=== PATIENT | female | born 1990 | race Caucasian/White ===

== ENCOUNTER 2019-07-28 17:58 | Emergency (ER) | payer OTHER ==
[~2019-07-28] VITALS: Ht 177.8 cm; Wt 79.4 kg
[2019-07-28 18:19] VITALS: BP 130/83
[2019-07-28] MEDS ORDERED: birth control pill ORAL (18:20)
--- NOTE | 2019-07-28 18:20 | NUR ---
ED Nurse Note: Patient ambulated into ER with a c/o back pain x today. Patient Addendum: 07/28/19 at 1908 by [facility] ED Nurse Note: Patient came from work and think she pulled a muscle moving boxes. Patient c/o pain score of 7/10. Patient aaox4, on room air.
--- NOTE | 2019-07-28 18:41 | NUR ---
ED Nurse Note: Urine sent down to the lab.
--- NOTE | 2019-07-28 18:50 | NUR ---
ED Nurse Note: ERMD is bedside.
[2019-07-28] MEDS ORDERED: CYCLOBENZAPRINE10 MG ORAL (18:59)
[2019-07-28] MEDS ORDERED: IBUPROFEN600 MG ORAL (18:59)
--- NOTE | 2019-07-28 19:06 | Emergency Room Report ---
History of Present Illness General Chief Complaint: Back Injury Source: Patient Present Illness HPI Patient is a 29-year-old female presents after increased neck and low back pain. She reports having injury while twisting at work. She denies any fever. She reports having pain to the left side of her neck as well as to the lumbar area. She denies prior back pain. She denies being . She takes ibuprofen without any improvement. She had prior pain to her neck but denies any sharp pain with sudden onset. Denies any dizziness or lightheadedness. Had not been vomiting or having diarrhea. Allergies: Coded Allergies: No Known Allergies (Unverified , 07/28/19) Patient History Past Medical History: see triage record Last Menstrual Period: 07/14/2019 Reviewed Nursing Documentation: PMH: Agreed; PSxH: Agreed Nursing Documentation-PMH Past Medical History: No History, Except For Review of Systems All Other Systems: negative except mentioned in HPI Physical Exam Vital Signs Date Time Temp Pulse Resp B/P (MAP) Pulse Ox O2 Delivery O2 Flow Rate FiO2 07/28/19 18:11 98.2 94 18 130/83 (99) 97 Room Air General Appearance: well appearing, no apparent distress, alert, GCS 15 Head: normocephalic, atraumatic ENT: hearing grossly normal, normal voice Neck: supple, limited range of motion - Decreased range of motion with right lateral rotation normal extension normal flexion Respiratory: lungs clear, no respiratory distress, speaking full sentences Cardiovascular #1: normal inspection, normal peripheral pulses, regular rate, rhythm Gastrointestinal: normal inspection Musculoskeletal: decreased range of mation Neurologic: alert, motor strength/tone normal, store planner III-XII nml as tested, oriented x3, normal gait Psychiatric: mood/affect normal Skin: no rash Medical Decision Making Diagnostic Impression: Primary Impression: Neck strain Additional Impression: Lumbar strain ER Course Patient presented for low back pain. Differential diagnosis include was not limited to contusion, strain, fracture, dislocation, cervical radiculopathy among others. Patient has a benign exam and does not appear to require any imaging or laboratory testing at this time. Patient appears to have a muscle strain to the left side of the neck as well as to the low back. Does not appear to be any other locations of injury. Patient appears to be stable for outpatient management. She does not require any imaging at this time. Patient was advised to follow-up with Worker's Comp. physician. She is given prescription for muscle relaxant. She advised to continue taking NSAIDs. Patient was advised to return if there is any worsening of condition or other concerns. This medical record is generated with [employer] chain hooker software. There may be some chain hooker discrepancies related to use of this software Last Vital Signs Date Time Temp Pulse Resp B/P (MAP) Pulse Ox O2 Delivery O2 Flow Rate FiO2 07/28/19 18:19 98.2 98 18 130/83 97 Room Air Status: improved Disposition: HOME, SELF-CARE Condition: Stable Scripts Cyclobenzaprine Hcl* (FLEXERIL*) 10 Mg Tablet 10 MG ORAL TID PRN for Muscle Spasm, #20 TAB Prov: Bryan Matrinez MD 07/28/19 Ibuprofen* (MOTRIN*) 600 Mg Tablet 600 MG ORAL Q8H PRN for For Pain, #30 TAB 0 Refills Prov: Bryan Martinez MD 07/28/19 Patient Instructions: Back Pain, Adult, Cervical Sprain Bryan Martinez MD Jul 28, 2019 19:06
[2019-07-28 19:30] VITALS: BP 130/83
--- NOTE | 2019-07-28 19:30 | NUR ---
ER DISCHARGE NOTE: Patient is cleared to be discharged per ERMD, pt is aox4, on room air, with stable vital signs. pt was given dc and prescription instructions, pt was able to verbalize understanding, pt id band removed. pt is able to ambulate with steady gait. pt took all belongings.
[2019-07-28 19:33] LABS: APPEARANCE,URINE SLIGHTLY CLOUDY; BILIRUBIN, URINE NEGATIVE (NEGATIVE); GLUCOSE, URINE (UA) NEGATIVE (NEGATIVE); KETONES,URINE 1+ (NEGATIVE); LEUKOCYTE ESTERASE ,URINE 2+ (NEGATIVE); NITRITE,URINE NEGATIVE (NEGATIVE); PH,URINE 5 (4.5-8.0); PROTEIN,URINE NEGATIVE (NEGATIVE); UROBILINOGEN,URINE NORMAL MG/DL (0.0-1.0)
[2019-07-28 19:35] LABS: COLOR,URINE YELLOW
== END 2019-07-28 19:30 | disposition home or self-care (01) ==
LOC: EMR 19:25
DX: S39.012A Strain of muscle, fascia and tendon of lower back, initial encounter (principal); S16.1XXA Strain of muscle, fascia and tendon at neck level, initial encounter; X50.1XXA Overexertion from prolonged static or awkward postures, initial encounter; Y92.9 Unspecified place or not applicable; Y99.0 Civilian activity done for income or pay
CPT/HCPCS: 81003; 81025; 87086; 99283